=== PATIENT | female | born 1985 | race Two or more races ===

== ENCOUNTER 2018-01-01 20:12 | Emergency (ER) | payer OTHER ==
[~2018-01-01] VITALS: Ht 172.7 cm; Wt 86.2 kg
[2018-01-01 20:30] VITALS: BP 122/62
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
[2018-01-01] MEDS ORDERED: IBUPROFEN600 MG ORAL (21:30)
[2018-01-01 21:34] VITALS: BP 122/62
--- NOTE | 2018-01-02 09:24 | Diagnostic Imaging Report ---
Indication: left shoulder pain Findings: 3 views of the left shoulder were obtained. Alignment of the left shoulder is normal. No acute fracture is identified. Soft tissues are unremarkable. Impression: No acute injury
== END 2018-01-01 21:34 | disposition home or self-care (01) ==
LOC: EMR 21:05
DX: S49.82XA Other specified injuries of left shoulder and upper arm, initial encounter (principal); Y04.2XXA Assault by strike against or bumped into by another person, initial encounter; Y92.9 Unspecified place or not applicable; Z88.1 Allergy status to other antibiotic agents; Z88.8 Allergy status to other drugs, medicaments and biological substances
CPT/HCPCS: 99283